=== PATIENT | female | born 1965 | race Caucasian/White ===

== ENCOUNTER → 2018-05-12 | Outpatient (CLI) | payer OTHER ==
--- NOTE | 2018-05-12 12:54 | US ---
EXAMINATION TYPE: US thyroid st tissue head/neck DATE OF EXAM: 05/12/2018 COMPARISON: 02/19/2017 CLINICAL HISTORY: E04.1 Thyroid Nodule. follow up exam GLAND SIZE: Right Lobe: 3.7 x 0.9 x 1.2 cm Overall Parenchyma: heterogenous Left Lobe: 3.2 x 0.8 x 1.1 cm Overall Parenchyma: heterogeneous Isthmus Thickness: 0.3 cm NODULES RIGHT: # of nodules measured on right: 1 1. 1.6 X 1.1 x 0.8 cm hypoechoic solid nodule at the lower pole with well-defined margins. This no dule is wider than tall and shows intranodular vascularity. Prior size: 1.5 x 1.1 x 0.7 cm LEFT: # of nodules measured on left: 0 ISTHMUS: # of nodules measured in the isthmus: 0 Bilateral neck scanned, no evidence of lymphadenopathy. Unable to discern some nodules mentioned in previous exam due to the diffusely heterogeneous nature o f the gland. IMPRESSION: Nonspecific nodularity stable from prior examination.
== END | disposition home or self-care (01) ==
LOC: RADUSWWP 12:22
PROVIDERS: ATTEND Otolaryngology
DX: E04.1 Nontoxic single thyroid nodule (principal)
CPT/HCPCS: 76536

== ENCOUNTER → 2019-01-11 | Outpatient (CLI) | payer OTHER ==
--- NOTE | 2019-01-11 17:10 | BD ---
EXAMINATION TYPE: Axial Bone Density DATE OF EXAM: 01/11/2019 COMPARISON: NONE CLINICAL HISTORY: Height: 61 Weight: 138.0 FRAX RISK QUESTIONS: Alcohol (3 or more units per day): no Family History (Parent hip fracture): no Glucocorticoids (More than 3mos): no (Ex: prednisone, prednisolone, methylprednisolone, dexamethasone, and hydrocortisone). History of Fracture in Adulthood: yes Secondary Osteoporosis: 1. Type 1 Diabetes: no 2. Hyperthyroidism: no 3. Menopause before 45: no 4. Malnutrition: no 5. Chronic liver disease: no Rheumatoid Arthritis: no Current Tobacco Use: no RISK FACTORS HISTORY OF: Hip Fracture (Right/Left): left When: 28 years old Surgery to Spine/Hip(right/left)/Wrist (right/left): left When: 28 years old Family History of Osteoporosis: no Active: yes Diet low in dairy products/other sources of calcium: no Postmenopausal woman: around age 51 Lost more than 2 inches in height since high school: no MEDICATIONS: Additional History: EXAM MEASUREMENTS: Bone mineral densitometry was performed using the [employer] System. Bone mineral density as measured about the Lumbar spine is: ----- L1-L4(G/cm2): 0.797 T Score Values are as follows: ----- L2: -3.8 ----- L3: -3.1 ----- L4: -2.9 ----- L1-L4: -3.2 Bone mineral density : BASELINE Bone mineral density about the R hip (g/cm2): 0.790 Bone mineral density about the L hip (g/cm2): T Score values are as follows: -----R Neck: -1.8 -----R Total: -1.3 Bone mineral density : BASELINE IMPRESSION: Osteoporosis (T Score less than -2.5). There is increased fracture risk and therapy is usually indicated based on age. Re-Screen 1-2 years. NOTE: T-SCORE=SD OF THE YOUNG ADULT MEAN.
--- NOTE | 2019-01-13 09:43 | MM ---
Reason for exam: screening (asymptomatic). Last mammogram was performed 2 years and 4 months ago. History: Patient is postmenopausal, history of other cancer, and is nulliparous. Took hormonal contraceptives for 13 years. Physical Findings: A clinical breast exam by your physician is recommended on an annual basis and results should be correlated with mammographic findings. MG Screening Mammo w CAD Bilateral CC and MLO view(s) were taken. Prior study comparison: September 06, 2016, bilateral MG screening mammo w CAD. February 24, 2015, bilateral MG screening mammo w CAD. The breast tissue is heterogeneously dense. This may lower the sensitivity of mammography. No significant changes when compared with prior studies. ASSESSMENT: Negative, BI-RAD 1 RECOMMENDATION: Routine screening mammogram of both breasts in 1 year.
== END | disposition home or self-care (01) ==
LOC: RADMAMWWP 12:35
PROVIDERS: ATTEND Obstetrics & Gynecology
DX: Z12.31 Encounter for screening mammogram for malignant neoplasm of breast (principal); M81.0 Age-related osteoporosis without current pathological fracture
CPT/HCPCS: 77067; 77080

== ENCOUNTER → 2019-07-12 | Outpatient (CLI) | payer OTHER ==
--- NOTE | 2019-07-13 08:24 | US ---
EXAMINATION TYPE: US thyroid st tissue head/neck DATE OF EXAM: 07/12/2019 COMPARISON: US 05/12/2018, 02/19/2017 and 02/07/2016 CLINICAL HISTORY: E04.1 THYROID NODULE. Thyroid nodule. GLAND SIZE: Right Lobe: 4.3 x 1.5 x 1.6 cm Overall Parenchyma: heterogeneous Left Lobe: 2.9 x 1.0 x 1.3 cm Overall Parenchyma: heterogeneous Isthmus Thickness: 0.3 cm NODULES RIGHT: # of nodules measured on right: 2 1. 1.6 X 1.0 x 0.8 cm hypoechoic nodule at the lower pole with well-defined margins. This nodule i s wider than tall and shows intranodular vascularity. Prior size: 1.6 x 1.1 x 0.8 cm. This measured 1.4 x 0.9 x 0.9 cm on the exam of 02/07/2016 2. 0.5 X 0.6 x 0.4 cm hypoechoic nodule at the lower pole with well-defined margins. This nodule is wider than tall and shows peripheral vascularity. Prior size: 0.5 x 0.5 x 0.6 cm on the exam of 02/07/2016 LEFT: # of nodules measured on left: 0 Heterogeneous thyroid makes it difficult to distinguish possible smaller nodules. ISTHMUS: # of nodules measured in the isthmus: 0 IMPRESSION: Similar size of the largest right thyroid nodule measuring up to 1.6 cm in comparison to multiple exa ms dating back to 2015.
== END | disposition home or self-care (01) ==
LOC: RADUSWWP 16:54
PROVIDERS: ATTEND Otolaryngology
DX: E04.1 Nontoxic single thyroid nodule (principal)
CPT/HCPCS: 76536

== ENCOUNTER → 2019-11-16 | Outpatient (CLI) | payer OTHER ==
[2019-11-16 09:18] LABS: Amorphous Sediment,Urine Rare /hpf; Appearance,Urine Cloudy (Clear); Bacteria,Urine Rare /hpf; Bilirubin,Urine Negative (Negative); Blood,Urine Negative (Negative); Color,Urine Yellow; Glucose,Urine (UA) Negative (Negative); Ketones,Urine Negative (Negative); Leukocyte Esterase,Urine Negative (Negative); Mucus,Urine Few /hpf; Nitrite,Urine Negative (Negative); Protein,Urine Negative (Negative); RBC,Urine 1 /hpf (0-5); Specific Gravity,Urine 1.017 (1.001-1.035); Urobilinogen,Urine <2.0 mg/dL (<2.0); WBC,Urine <1 /hpf (0-5)
[2019-11-16 09:49] LABS: Basophils % (A) 0 %; Eosinophils # (A) 0.2 k/uL (0-0.7); Eosinophils % (A) 3 %; HCT 43.5 % (34.0-46.0); Lymphocytes # (A) 1.6 k/uL (1.0-4.8); Lymphocytes % (A) 26 %; MCH 28.5 pg (25.0-35.0); MCHC 32.2 g/dL (31.0-37.0); MCV 88.5 fL (80.0-100.0); Mean Platelet Volume 8.8; Monocytes # (A) 0.3 k/uL (0-1.0); Monocytes % (A) 5 %; Neutrophils # (A) 3.8 k/uL (1.3-7.7); Neutrophils % (A) 62 %; Platelet Count 248 k/uL (150-450); RBC 4.91 m/uL (3.80-5.40); RDW 12.9 % (11.5-15.5); WBC 6.1 k/uL (3.8-10.6)
[2019-11-16 17:00] LABS: African American GFR (CKD) 113.8 (60.0-200.0); Albumin 4.4 g/dL (3.80-4.90); Albumin/Globulin Ratio 1.76 (1.60-3.17); Anion Gap 7.2 mmol/L (4.00-12.00); BUN/Creat Ratio 28.57 Ratio (12.00-20.00); Calcium 9.4 mg/dL (8.7-10.3); Carbon Dioxide 29.8 mmol/L (21.6-31.8); Chol/HDL Ratio 2.71; Globulin 2.5 g/dL (1.6-3.3); LDL Cholesterol,Calculated 122.2 mg/dL (0.0-131.0); Non-African American GFR(CKD) 98.2 (60.0-200.0); Potassium 4.2 mmol/L (3.5-5.5); Total Bilirubin 0.6 mg/dL (0.3-1.2); Total Protein 6.9 g/dL (6.2-8.2); VLDL Calculation 14.8 mg/dL (5.00-40.00)
== END | disposition home or self-care (01) ==
LOC: LABWHC1 08:24
PROVIDERS: ATTEND Internal Medicine
DX: I10 Essential (primary) hypertension (principal); E55.9 Vitamin D deficiency, unspecified
CPT/HCPCS: 36415; 80053; 80061; 81001; 82306; 85025

== ENCOUNTER → 2020-09-29 | Outpatient (CLI) | payer OTHER ==
--- NOTE | 2020-09-29 13:27 | US ---
EXAMINATION TYPE: US thyroid st tissue head/neck DATE OF EXAM: 09/29/2020 COMPARISON: NONE CLINICAL HISTORY: 55-year-old female E04.1 THYROID NODULE. TECHNIQUE: Multiple sonographic images of the thyroid gland are obtained. FINDINGS: GLAND SIZE: Right Lobe: 3.9 x 1.4 x 1.5 cm Overall Parenchyma: grossly heterogenous Left Lobe: 2.8 x 1.1 x 0.9 cm Overall Parenchyma: grossly heterogeneous Isthmus Thickness: 0.2 cm NODULES RIGHT: # of nodules measured on right: 1. 1.6 X 0.8 x 1.2 cm hypoechoic solid nodule at the lower pole with well-defined margins. This no dule is wider than tall and shows intranodular vascularity. Prior size: 1.6 X 1.0 x 0.8 cm 2. 0.8 X 0.6 x 0.6 cm hypoechoic solid nodule at the mid pole with well-defined margins. This nodul e is wider than tall and shows . Prior size: 0.5 X 0.6 x 0.4cm LEFT: # of nodules measured on left: 0 ISTHMUS: # of nodules measured in the isthmus: 0 Bilateral neck scanned, no evidence of lymphadenopathy. IMPRESSION: There are 2 solid nodules on the right measuring up to 1.6 x 1.2 cm (not significantly changed as com pared to 1.6 x 1.0 cm, previously). The smaller nodule is minimally larger at 8 x 6 mm (versus 6 x 5 mm, previously). Continued follow-up can be performed.
== END | disposition home or self-care (01) ==
LOC: RADUSWWP 12:12
PROVIDERS: ATTEND Otolaryngology
DX: E04.2 Nontoxic multinodular goiter (principal)
CPT/HCPCS: 76536

== ENCOUNTER → 2022-03-18 | Outpatient (CLI) | payer OTHER ==
--- NOTE | 2022-03-18 15:40 | BD ---
EXAMINATION TYPE: Axial Bone Density DATE OF EXAM: 03/18/2022 COMPARISON: 01/11/2019 CLINICAL HISTORY: 56 years year old Female. ICD-10 CODE: M81.0 AGE RELATED OSTEOPOROSIS Height: 59.5 IN Weight: 142 LBS FRAX RISK QUESTIONS: History of Fracture in Adulthood: LT HIP FX AGE 30 RISK FACTORS HISTORY OF: Hip Fracture (Left): YES AGE 30 Active: YES Postmenopausal woman: AGE 49 MEDICATIONS: Additional Medications: CALCIUM, VIT D, BLOOD PRESSURE MEDS, CHOLESTEROL MEDS, EXAM MEASUREMENTS: Bone mineral densitometry was performed using the [employer] System. Bone mineral density as measured about the Lumbar spine is: ----- L1-L4(G/cm2): 0.777 T Score Values are as follows: ----- L1: -3.5 ----- L2: -4.4 ----- L3: -3.9 ----- L4: -2.1 ----- L1-L4: -3.4 Bone mineral density has: Decreased -1.6% since study of: 01/11/2019 Bone mineral density about the R hip (g/cm2): 0.755 T Score values are as follows: -----R Neck: -2.0 -----R Total: -1.4 Bone mineral density has: Decreased -1.9% since study of: 01/11/2019 FRAX%s: The graph provided illustrates a 14.9 chance for a major osteoporotic fx and a 2.0 chance for the hips probability for fx in 10 years time. IMPRESSION: Osteoporosis NOTE: T-SCORE=SD OF THE YOUNG ADULT MEAN.
--- NOTE | 2022-03-19 10:11 | MM ---
Reason for exam: screening (asymptomatic). Last mammogram was performed 3 years and 2 months ago. History: Patient is postmenopausal, history of other cancer, and is nulliparous. Took hormonal contraceptives for 13 years. Physical Findings: A clinical breast exam by your physician is recommended on an annual basis and results should be correlated with mammographic findings. MG Screening Mammo w CAD Bilateral CC and MLO view(s) were taken. Prior study comparison: January 11, 2019, bilateral MG screening mammo w CAD. September 06, 2016, bilateral MG screening mammo w CAD. There are scattered fibroglandular densities. There are benign appearing round calcifications in the left breast. There is no discrete abnormality. ASSESSMENT: Benign, BI-RAD 2 RECOMMENDATION: Routine screening mammogram of both breasts in 1 year.
== END | disposition home or self-care (01) ==
LOC: RADMAMWWP 14:25
PROVIDERS: ATTEND Internal Medicine
DX: Z12.31 Encounter for screening mammogram for malignant neoplasm of breast (principal); M81.0 Age-related osteoporosis without current pathological fracture; Z78.0 Asymptomatic menopausal state
CPT/HCPCS: 77067; 77080

== ENCOUNTER → 2022-05-24 | Outpatient (CLI) | payer OTHER ==
--- NOTE | 2022-05-24 12:00 | US ---
EXAMINATION TYPE: US thyroid st tissue head/neck DATE OF EXAM: 05/24/2022 COMPARISON: Thyroid ultrasound September 29, 2020 and older studies. CLINICAL HISTORY: E04.1 Thyroid nodule. Thyroid nodule. GLAND SIZE: Right Lobe: 4.5 x 1.6 x 1.5 cm Overall Parenchyma: Very heterogenous Left Lobe: 3.6 x 1.1 x 1.4 cm Overall Parenchyma: Very heterogeneous Isthmus Thickness: 0.22 cm NODULES RIGHT: # of nodules measured on right: 3 1. 1.8 X 1.4 x 1.0 cm, lower medial, solid or almost completely solid, hypoechoic nodule, which is wider than tall, with smooth margins, with echogenic foci. Prior size: 1.6 x 0.8 x 1.2 cm 2. 0.7 X 0.7 x 0.6 cm, mid mid, solid or almost completely solid, hypoechoic nodule, which is wider than tall, with smooth margins, with echogenic foci. Prior size: 0.8 x 0.6 x 0.6 cm 3. 1.1 X 0.9 x 0.6 cm, mid medial, solid or almost completely solid, hypoechoic nodule, which is wi lata than tall, with ill-defined margins, without echogenic foci. Prior size: Does not correlate. LEFT: # of nodules measured on left: 0 ISTHMUS: # of nodules measured in the isthmus: 0 Bilateral neck scanned, no evidence of lymphadenopathy. Markedly heterogeneous normal-sized thyroid with 2 stable right-sided nodules. Largest has noted echo genic foci and has increased in size from baseline 2015 study. Third ill-defined nodule was present i n 2015 and likely stable accounting for technical differences. IMPRESSION: Consider sampling of the dominant right-sided nodule. 2017 ACR TI-RADS LEVEL: TI-RADS 5 - Highly Suspicious: Follow if > 0.5 cm, FNA if > 1.0 cm *Highest TI-RADS level nodule reported
== END | disposition home or self-care (01) ==
LOC: RADUSWWP 10:58
PROVIDERS: ATTEND Otolaryngology
DX: E04.2 Nontoxic multinodular goiter (principal)
CPT/HCPCS: 76536

== ENCOUNTER 2023-03-05 13:43 | Day surgery (SDC) | payer OTHER ==
[~2023-03-05 13:43] MED LIST: LACTATED RINGERS 1,000 ML IV SCH; LIDOCAINE 1% (10MG/ML) FOR IV START INTRADERMA PRN
[2023-03-05 14:19] VITALS: RESP 16; TEMP 97.8
[2023-03-05] MEDS ORDERED: LIDOCAINE 2% INJ 20 MG/ML (2 ML VIAL) ONE (14:35)
[2023-03-05] MEDS ORDERED: PROPOFOL 10 MG/ML 20 ML VIAL IV ONE (14:35)
--- NOTE | 2023-03-05 14:49 | P.PCN ---
Date of Procedure: 03/05/23 Procedure(s) Performed: BRIEF HISTORY: Patient is a 57-year-old pleasant white female scheduled for an elective colonoscopy as a part of screening for colon cancer. PROCEDURE PERFORMED: Colonoscopy. PREOPERATIVE DIAGNOSIS: Screening for colon cancer. IV sedation per Anesthesia. PROCEDURE: After informed consent was obtained, the patient, was brought into the endoscopy unit. IV sedation was administered by Anesthesia under continuous monitoring. Digital rectal examination was normal. Initially the Olympus CF-160 flexible video colonoscope was then inserted in the rectum, gradually advanced into the cecum without any difficulty. Careful examination was performed as the scope was gradually being withdrawn. Ileocecal valve and the appendiceal orifice were visualized and appeared normal. Prep was excellent. Mucosa of the cecum, ascending colon, transverse colon, descending colon, sigmoid colon, and rectum appeared normal. Retroflexion was performed in the rectum and no lesions were seen. The patient tolerated the procedure well. IMPRESSION: Normal-appearing colon from rectum to cecum with no evidence of colorectal neoplasia . RECOMMENDATIONS: Findings of this examination were discussed with the patient is a family.. She was advised to have a repeat screening colonoscopy in 10 ye ars.
[2023-03-05 15:24] VITALS: BP 102/66; PULSE 60
== END 2023-03-05 15:51 | disposition home or self-care (01) ==
LOC: ORWHC2ENDO 13:43
PROVIDERS: ATTEND Internal Medicine Gastroenterology
DX: Z12.11 Encounter for screening for malignant neoplasm of colon (principal); I10 Essential (primary) hypertension; E78.5 Hyperlipidemia, unspecified; J45.909 Unspecified asthma, uncomplicated; Z79.899 Other long term (current) drug therapy
CPT/HCPCS: 45378; J2704; J2001

== ENCOUNTER → 2023-05-12 | Outpatient (CLI) | payer OTHER ==
--- NOTE | 2023-05-12 10:25 | US ---
EXAMINATION TYPE: US thyroid st tissue head/neck DATE OF EXAM: 05/12/2023 COMPARISON: Multiple thyroid ultrasounds the most recent 05/24/2022 CLINICAL INDICATION: Female, 58 years old with history of E04.1 NON TOXIC NODULE; thyroid nodule foll ow up GLAND SIZE: Right Lobe: 1.7 x 4.8 x 1.3 cm Overall Parenchyma: heterogenous Left Lobe: 1.0 x 3.6 x 1.0 cm Overall Parenchyma: heterogenous Isthmus Thickness: 0.21 cm NODULES RIGHT: # of nodules measured on right: 2 1. 0.8 X 0.6 x 1.2 cm, lower medial, solid or almost completely solid, hypoechoic nodule, which is wider than tall, with smooth margins, without echogenic foci. Prior size: 1.1 x 0.6 x 0.9 cm 2. 1.8 X 0.8 x 1.6 cm, lower medial, solid or almost completely solid, hypoechoic nodule, which is wider than tall, with smooth margins, without echogenic foci. Prior size: 1.8 x 1.0 x 1.4 cm LEFT: # of nodules measured on left: 0 diffusely heterogenous ISTHMUS: # of nodules measured in the isthmus: 0 Bilateral neck scanned, no evidence of lymphadenopathy. IMPRESSION: Heterogenous thyroid gland with 2 stable right-sided nodules.
== END | disposition home or self-care (01) ==
LOC: RADUSWWP 09:37
PROVIDERS: ATTEND Otolaryngology
DX: E04.2 Nontoxic multinodular goiter (principal)
CPT/HCPCS: 76536

== ENCOUNTER → 2023-06-23 | Outpatient (CLI) | payer OTHER ==
--- NOTE | 2023-06-23 14:49 | MM ---
Reason for Exam: Screening (asymptomatic). Last mammogram was performed 1 year(s) and 3 month(s) ago. Patient History: Menarche at age 16. Patient has no children. Postmenopausal. Other cancer. Hormonal Contraceptives for 13 years until age 40. Risk Values: Marissa 5 year model risk: 1.4%. NCI Lifetime model risk: 7.8%. Prior Study Comparison: 12/31/2013 Bilateral Screening Mammogram, [facility]. 02/24/2015 Bilateral Screening Mammogram, [facility]. 09/06/2016 Bilateral Screening Mammogram, [facility]. 01/11/2019 Bilateral Screening Mammogram, [facility]. 03/18/2022 Bilateral Screening Mammogram, [facility]. Tissue Density: There are scattered fibroglandular densities. Findings: Analyzed By CAD. There is no suspicious group of microcalcifications or new suspicious mass in either breast. Overall Assessment: Negative, BI-RAD 1 Management: Screening Mammogram of both breasts in [address] [facility] will attempt to contact patient to return for supplemental views and ultrasound if indicated. Patient should continue monthly self-breast exams. A clinical breast exam by your physician is recommended on an annual basis. This exam should not preclude additional follow-up of suspicious palpable abnormalities. Note on Marissa scores and lifetime risk: 1. A Marissa score greater than 3% is considered moderate risk. If this is the case, consider specialist referral to assess eligibility for a risk reducing agent. 2. If overall lifetime risk for the development of breast cancer is 20% or higher, the patient may qualify for future screening with alternating mammogram and breast MRI. Electronically signed and approved by: Andrés Longoria DO
== END | disposition home or self-care (01) ==
LOC: RADMAMWWP 13:08
PROVIDERS: ATTEND Internal Medicine
DX: Z12.31 Encounter for screening mammogram for malignant neoplasm of breast (principal); Z78.0 Asymptomatic menopausal state
CPT/HCPCS: 77067

== ENCOUNTER → 2024-05-21 | Outpatient (CLI) | payer BC ==
--- NOTE | 2024-05-21 15:33 | BD ---
EXAMINATION TYPE: Axial Bone Density DATE OF EXAM: 05/21/2024 CLINICAL HISTORY: 59 years old Female. ICD-10 CODE: M81.0 OSTEOPOROSIS Height: 5 ft Weight: 140 FRAX RISK QUESTIONS: Alcohol (3 or more units per day): no Family History (Parent hip fracture): no Glucocorticoids (More than 3mos): no (Ex: prednisone, prednisolone, methylprednisolone, dexamethasone, and hydrocortisone). History of Fracture in Adulthood: yes Secondary Osteoporosis: 1. Type 1 Diabetes: no 2. Hyperthyroidism: no 3. Menopause before 45: no 4. Malnutrition: no 5. Chronic liver disease: no Rheumatoid Arthritis: no Current Tobacco Use: no RISK FACTORS HISTORY OF: Surgery to Spine/Hip(right/left)/Wrist (right/left): no MEDICATIONS: Thyroid Medications: none Osteoporosis Medications: yes Which medication: fosamax How Lon years EXAM MEASUREMENTS: Bone mineral densitometry was performed using the [employer] System. Bone mineral density as measured about the Lumbar spine is: ----- L1-L4(G/cm2): 0.796 T Score Values are as follows: ----- L1: -3.8 ----- L2: -3.0 ----- L3: -2.6 ----- L4: -3.6 ----- L1-L4: -3.2 Z Score Values are as follows: ----- L1: -2.7 ----- L2: -1.8 ----- L3: -1.4 ----- L4: -2.4 ----- L1-L4: -2.0 Bone mineral density has: increased 2.4 % since study of: 2021 Bone mineral density about the R hip (g/cm2): 0.772 Bone mineral density about the L hip (g/cm2): 0.801 T Score values are as follows: -----R Neck: -1.9 -----L Neck: -1.7 -----R Total: -1.2 -----L Total: -1.2 Z Score values are as follows: -----R Neck: -0.7 -----L Neck: -0.5 -----R Total: -0.3 -----L Total: -0.3 Bone mineral density has: increased 2.4 % since study of: 2021 FRAX%s: The graph provided illustrates a 15.4 % chance for a major osteoporotic fx and a 1.9 % chance for the hips probability for fx in 10 years time. IMPRESSION: Osteoporosis (T Score less than -2.5). There is increased fracture risk and therapy is usually indicated based on age. Re-Screen 1-2 years. NOTE: T-SCORE=SD OF THE YOUNG ADULT MEAN.
== END | disposition home or self-care (01) ==
LOC: RADBDWWP 10:54
PROVIDERS: ATTEND Internal Medicine
DX: M85.89 Other specified disorders of bone density and structure, multiple sites (principal); M85.88 Other specified disorders of bone density and structure, other site
CPT/HCPCS: 77080

== ENCOUNTER → 2024-10-11 | Outpatient (CLI) | payer BC ==
--- NOTE | 2024-10-12 19:03 | MM ---
Reason for Exam: Screening (asymptomatic). Last mammogram was performed 1 year(s) and 3 month(s) ago. Patient History: Menarche at age 16. Patient has no children. Postmenopausal. Other cancer. Hormonal Contraceptives for 13 years until age 40. Risk Values: Marissa 5 year model risk: 1.4%. NCI Lifetime model risk: 7.6%. Prior Study Comparison: 01/11/2019 Bilateral Screening Mammogram, [facility]. 03/18/2022 Bilateral Screening Mammogram, [facility]. 06/23/2023 Bilateral MG screening mammo w CAD, [facility]. Tissue Density: The breasts are heterogeneously dense, which may obscure small masses. Findings: Analyzed By CAD. There is no suspicious group of microcalcifications or new suspicious mass in either breast. Overall Assessment: Negative, BI-RAD 1 Management: Screening Mammogram of both breasts in 1 year. . Patient should continue monthly self-breast exams. A clinical breast exam by your physician is recommended on an annual basis. This exam should not preclude additional follow-up of suspicious palpable abnormalities. Note on Marissa scores and lifetime risk: 1. A Marissa score greater than 3% is considered moderate risk. If this is the case, consider specialist referral to assess eligibility for a risk reducing agent. 2. If overall lifetime risk for the development of breast cancer is 20% or higher, the patient may qualify for future screening with alternating mammogram and breast MRI. [facility], , 10/12/2024 7:00 PM. Electronically signed and approved by: Otf Cyr M.D. Radiologist
== END | disposition home or self-care (01) ==
LOC: RADMAMWWP 10:36
PROVIDERS: ATTEND Internal Medicine
DX: Z12.31 Encounter for screening mammogram for malignant neoplasm of breast (principal); M81.0 Age-related osteoporosis without current pathological fracture; Z78.0 Asymptomatic menopausal state; R92.333 Mammographic heterogeneous density, bilateral breasts
CPT/HCPCS: 77067